=== PATIENT | male | born 1955 | race Caucasian/White ===

== ENCOUNTER → 2019-04-08 | Outpatient (CLI) | payer OTHER ==
--- NOTE | 2019-04-08 16:37 | Diagnostic Imaging Report ---
TECHNIQUE: Magnetic resonance imaging of the LEFT KNEE was performed WITHOUT injected contrast. HISTORY: ACUTE PAIN OF LEFT KNEE , fell, April 08, 2019 COMPARISON: None available. FINDINGS: LIGAMENTS AND TENDONS: ACL: Intact PCL: Intact Collateral ligaments: High-grade partial tearing of the proximal medial collateral ligament, including the superior aspect of the meniscocapsular junction. Mildly increased intrasubstance signal of the proximal fibular collateral ligament. Iliotibial band: Unremarkable Popliteal tendon: Intact Extensor mechanism: Intact, mild intrasubstance degeneration of the proximal patellar tendon. JOINT: Menisci: Medial: Intact Lateral: Intact Articular Cartilage: Medial Compartment: Low to intermediate grade erosion of the weightbearing cartilage. Lateral Compartment: Low-grade erosion of the weightbearing cartilage. Patellofemoral Compartment: High-grade to full-thickness erosions of the medial femoral trochlea. Joint Fluid: Synovitis and moderate nonspecific joint effusion. Probable ruptured Brown's cyst with extravasation of joint fluid at the posteromedial soft tissues. BONES: No focal or infiltrative bone marrow replacing abnormality. A comminuted, intra-articular, nondisplaced fracture of the fibular head with associated bone marrow edema. SOFT TISSUES: Lateral soft tissue edema. IMPRESSION: 1. High-grade partial tear of the proximal medial collateral ligament and adjacent superior meniscocapsular junction. 2. Acute, comminuted, fibular head fracture with associated bone marrow contusion. 3. Probable ruptured and decompressed Brown's cyst. 4. Tricompartmental osteoarthrosis. Signed by: Dr. Eber Botello D.O., M.M.M. on 04/08/2019 4:34 PM
== END ==
LOC: MRI 15:18
PROVIDERS: ATTEND Family Medicine
DX: M25.562 Pain in left knee (principal)